=== PATIENT | male | born 1985 | race Asian ===

== ENCOUNTER 2018-11-23 14:06 | Emergency (ER) | payer SELFPAY ==
[~2018-11-23] VITALS: Ht 172.7 cm; Wt 93.9 kg
[2018-11-23 14:19] VITALS: Ht 172.7 cm; Wt 93.9 kg
[2018-11-23 14:46] LABS: BASOPHIL % 0.6 % (0-2); PLATELET COUNT 209 x10^3mcL (130-400); RED CELL DISTRIBUTION WIDTH 11.9 % (11.5-14.5)
[2018-11-23 14:48] LABS: CALCIUM 8.6 mg/dL (8.5-10.1); CARBON DIOXIDE 23.3 mmol/L (21-32); CHLORIDE SERUM 106 mmol/L (98-107); GFR1 > 60 mL/min; POTASSIUM SERUM 3.5 mmol/L (3.5-5.1); SODIUM SERUM 143 mmol/L (136-145)
[2018-11-23 14:53] LABS: ALBUMIN 4.3 g/dL (3.4-5.0); ALKALINE PHOSPHATASE 69 U/L (46-116); BILIRUBIN TOTAL 0.8 mg/dL (0.20-1.00); TOTAL PROTEIN, SERUM 7.9 g/dL (6.4-8.2)
[2018-11-23 15:12] LABS: GLUCOSE SERUM 153 mg/dL (74-106)
[2018-11-23 15:15] LABS: ALT/SGPT 102 U/L (16-63); AST/SGOT 62 U/L (15-37)
[2018-11-23 15:19] LABS: UA SPECIFIC GRAVITY 1.025 (1.005-1.035); microscopic required? YES; urine erythrocyte TRACE (NEGATIVE)
[2018-11-23 18:33] VITALS: BP 120/83
== END 2018-11-23 18:33 | disposition home or self-care (01) ==
LOC: ED 14:06
PROVIDERS: Specialist
DX: N13.2 Hydronephrosis with renal and ureteral calculous obstruction (principal)
CPT/HCPCS: 36415; Q9967